=== PATIENT | female | born 1990 | race African-American/Black ===

== ENCOUNTER 2024-07-17 11:51 | Emergency (ER) | payer MEDICAID ==
[~2024-07-17] VITALS: Ht 165.1 cm; Wt 59.0 kg
[2024-07-17 12:14] VITALS: O2SAT 100
[2024-07-17] MEDS: KETOROLAC 30MG/ML VIAL IM ONE (15:41)
[2024-07-17] MEDS ORDERED: IBUP-2029 MT (17:08)
[2024-07-17] MEDS ORDERED: CYCL10TA21 MT (17:08)
[2024-07-17 17:34] VITALS: BP 114/67; PULSE 80; RESP 16; TEMP 36.83628; O2SAT 100
== END 2024-07-17 17:54 | disposition home or self-care (01) ==
LOC: ER 11:51
DX: M54.2 Cervicalgia (principal); M54.9 Dorsalgia, unspecified; V49.9XXA Car occupant (driver) (passenger) injured in unspecified traffic accident, initial encounter; Y93.89 Activity, other specified; Y92.89 Other specified places as the place of occurrence of the external cause; Y99.8 Other external cause status
CPT/HCPCS: 99285; 72125; 71045; 81025; 72128; 96372; J1885